=== PATIENT | female | born 1945 ===

== ENCOUNTER 2020-05-27 04:55 | Inpatient (IN) | payer MEDICARE ==
--- NOTE | 2020-05-27 10:41 | PDOC.FPRHP ---
- History of Present Illness Chief Complaint: Dark stool History of Present Illness: Patient is a 74 year old with hx of ESRD on TTHS, afib, DM2, HTN, and possible CHF who presented with dark stool x 4 days. On eliquis for afib. Patient is poor historian. Per daughter, patient has had decreased PO intake and decreased m obility. No hx GI bleed in past. No SOB or wheezing. Patient tested COVID+ on 05/04. + COVID in ED on 05/26. Most recent fall was 02/23. Daughter reports patient has been chronically weak since and ambulates with walker. Baseline mentation is awake, alert, requires assistance with all ADLs other than feeding self. ED Course: In [place] ED: +FOBT. H/H was 5.9/18.4. Received 2 units of blood, repeat H/H was 7.6/23. Plt 128. Initial INR 1.8. BUN elevated at 49. Creatinine 3.7. Albumin low at 2.4. CT Abdomen/Pelvis showed bilateral mild pleural effusion, moderate cardiomegaly, mild pericardial effusion, few old healed fractures on left ribs, insuffiency fracture through bilateral inferior and superior pubic rami, insufficiency fractures with right sacral ala, few left renal stones without hydronephrosis, atrophic kidneys. Received Rocephin 1g, 1L NS, Zofran 4mg. - Allergies/Adverse Reactions Allergies Allergy/AdvReac Type Severity Reaction Status Date / Time No Known Allergies Allergy Verified 05/27/20 11:12 - History PMHx: ESRD on TTHS, afib, DM2, HTN, CHF? PSHx: L arm fistula, ankle surgery with pins FHx: DM Social: Denies ETOH, drug and tobacco use. Lives with and brother. 11 children, alternate taking care of her. - Review of Systems ROS unobtainable: due to mental status - Vital signs BP: [111/70] HR: [92] RR: 18 Tmax: [98] Pox: [95]% on [RA] Wt: [44.4kg] - Physical Exam Constitutional: NAD -Constitutional: sleepy but easily arousable, able to say name but could not get more information out of her HEENT: normocephalic and atraumatic, PERRLA, EOMI, conjunctiva clear, no scleral icterus Neck: trachea midline Heart: pulses present Lungs: no respiratory distress, good air movement Abdomen: soft, non-tender, no masses/distention Musculoskeletal: ROM grossly normal -Musculoskeletal: decreased muscle mass of extremities ROM x4 healed ulcers of Neurological: no focal deficit Skin: no rash/lesions, no jaundice Psychiatric: other (unable to obtain) FMR H&P: Results - Labs Result Diagrams: 05/27/20 12:40 05/27/20 12:40 FMR H&P: A/P - Plan 74 year old female with history of ESRD on T//, afib on eliquis, DM2 who presented with dark stool x 4 days Symptomatic anemia 2/2 likely GI bleed Daughter reports worsening weakness and dark stool x 4 days. +FOBT in [place] ED. Initial H/H was 5.9/18.4, INR was 1.8. Unknown last EGD/colonoscopy due to poor historian -Hgb improved from 5.9 > 7.6 s/p 2 units pRBC. Repeat H/H now -Consult GI for evaluation -NPO pending GI consult -Protonix 40mg IV BID -Hold home eliquis. SCDs for dvt ppx ESRD on T/ dialysis Initial lab work showed creatinine 3.7, BUN 49 -Consult nephrology -Renal diet -Renally dose medications as indicated Hx of CHF Daughter denies hx of CHF in past but noted on records. CT A/P showed bilateral mild pleural effusion and moderate cardiomegaly. -Contact PCP in [place] to confirm diagnosis -Strict I&Os -Complete med rec with pharmacy Afib -Hold home eliquis -Complete med rec with pharmacy to initiate home meds DM2 Daughter reports diet control -Mild SSI -Accuchecks ACHS -Hypoglycemic protocol in place HTN BP controlled upon admission -Monitor -Complete med rec with pharmacy to initiate home meds Hx of falls Few old healed fractures on left ribs, insuffiency fracture through bilateral inferior and superior pubic rami, insufficiency fractures with right sacral ala noted on imaging. Likely chronic due to recurrent falls -PT/OT eval PCP: Dr. Ellis in [place] Code: FULL per daughter, will confirm with DVT ppx: SCDs Social: Palliative consult for goals of care Dispo: Admit to medicine inpatient, expected LOS > 48 hours FMR H&P: Upper Level - Plan Date/Time: 05/27/20 1041 I, [Edwina So], have evaluated this patient and agree with findings/plan as outlined by consulting intern resident. Pertinent changes/additions are listed here. 74 yo F with Afib, DM2, CHF?, HTN and ESRD on TTS HD transferred from [facility] for GI bleed. Currently patient is difficult to elicit history from since she is drowsy and just received Ativan this morning. Daughter reports she has a hx of Afib on eliquis and starting Sunday had been having dark tarry stools. No prior hx of GI bleed. She reports shes had decreased energy and PO intake as well. Sunday they brought her to the hospital where she was found to have a Hgb of 5.2, INR 1.8, FOBT+ and was given 2 PRBCs with plans to transfe r. Patients last reported bloody BM was yesterday evening. Her repeat Hgb was 7.7 on 05/27 at midnight. She will be admitted for suspected GI bleed with monitoring. Will start IV protonix, make NPO and consult GI. Hold eliquis. In addition, we will consult nephron since patient will require routine HD while she is here. GI ppx: IV protonix BID dvt ppx: hold Code: full Addendum - Attending - Attending Attestation Date/Time: 05/27/20 2938 I personally evaluated the patient and discussed the management with Dr. So. I agree with the History, Examination, Assessment and Plan documented above with any addition or exceptions noted below.
[2020-05-27] MEDS ORDERED: Ondansetron PF 4 MG/2 ML Vial IVP PRN (10:42)
[2020-05-27] MEDS ORDERED: Ondansetron ODT 4 MG TAB PO PRN (10:42)
[2020-05-27 11:00] VITALS: BMI 17.9
[2020-05-27] MEDS ORDERED: Dextrose 50% Abboject 50 ML SYRINGE SLOW IVP PRN (12:03)
[2020-05-27] MEDS ORDERED: HumaLOG 300 UNITS/3 ML VIAL SC PRN (12:03)
[2020-05-27] MEDS ORDERED: Dextrose 5% in Water 1,000 ML IV PRN (12:03)
[2020-05-27 13:03] LABS: INR-International Normal Ratio 1.5; Prothrombin Time 18.6 sec (12.0-14.7)
[2020-05-27 13:04] LABS: PTT 36.7 sec (22.9-36.1)
[2020-05-27 13:15] LABS: Anion Gap 23 mmol/L (10-20); BUN (Urea Nitrogen) 53 mg/dL (9.8-20.1); Calc. Creatinine Clearance 8 mL/min (70-130); Calcium 7.6 mg/dL (7.8-10.44); Carbon Dioxide 18 mmol/L (23-31); Chloride 101 mmol/L (98-107); Glucose 83 mg/dL (83-110); Potassium 4.3 mmol/L (3.5-5.1); Sodium 138 mmol/L (136-145)
[2020-05-27 13:27] LABS: #Lymphocytes 0.8 thou/uL (1.20-3.40); #Monocytes 0.5 thou/uL (0.11-0.59); #Neutrophils 3.2 thou/uL (1.40-6.50); %Basophils 0.5 % (0.0-1.0); %Eosinophils 0.7 % (0.0-10.0); %Lymphocytes 17.6 % (21.0-51.0); %Monocytes 11.6 % (0.0-10.0); %Neutrophils 69.6 % (42.0-75.0); MDiff Complete? YES; Mean Corpuscular HGB CONC 31.7 g/dL (32.0-36.0); Mean Corpuscular Hemoglobin 30.1 pg (27.0-31.0); Mean Platelet Volume 9.3 fL (7.4-10.4); Platelet Count 103 thou/uL (130-400); RBC Distribution Width 16.2 % (11.5-14.5); Red Blood Cell (RBC) Count 3.33 mill/uL (4.20-5.40); White Blood Cell (WBC) Count 4.6 thou/uL (4.8-10.8)
[2020-05-27 13:28] LABS: Anisocytosis SLIGHT = 6-15 cells (100X) (0-5/hpf); Platelet Morphology Comment Appears Decreased; Polychromasia SLIGHT = 2-3 cells (100X) (0-2/hpf); Target Cells SLIGHT = 2-5 cells (100X) (0-1/hpf)
[2020-05-27 17:15] LABS: HBSAg Index 0.26 S/CO (0-0.99); Hep B Surf Ag Non-Reactive S/CO (NonReactive)
[2020-05-27 17:39] LABS: ALT (SGPT) 11 U/L (8-55); AST (SGOT) 20 U/L (5-34); Albumin 2.8 g/dL (3.4-4.8); Alkaline Phosphatase 162 U/L (40-110); Anion Gap 16 mmol/L (10-20); BUN (Urea Nitrogen) 19 mg/dL (9.8-20.1); Bilirubin, Total 0.7 mg/dL (0.2-1.2); Calc. Creatinine Clearance 18 mL/min (70-130); Calcium 7.6 mg/dL (7.8-10.44); Carbon Dioxide 25 mmol/L (23-31); Chloride 101 mmol/L (98-107); Globulin 3.6 g/dL (2.4-3.5); Glucose 79 mg/dL (83-110); Potassium 3.1 mmol/L (3.5-5.1); Protein, Total 6.4 g/dL (6.0-8.3); Sodium 139 mmol/L (136-145)
[2020-05-27] MEDS: Acetaminophen 325 MG TAB PO PRN (18:31)
[2020-05-27] MEDS: Pantoprazole 40 MG VIAL IVP SCH (21:56)
[2020-05-27] MEDS ORDERED: Carvedilol 6.25 MG TAB PO SCH (23:00)
[2020-05-27] MEDS ORDERED: Melatonin 3 MG TAB PO PRN (23:10)
[2020-05-28] MEDS ORDERED: Lactated Ringer's 500 ML IV SCH (00:15)
--- NOTE | 2020-05-28 01:27 | CON ---
DATE OF CONSULTATION: CONSULTING PHYSICIAN: Dr. Cleveland. REASON FOR CONSULTATION: End-stage renal disease evaluation. REASON FOR ADMISSION: GI bleed. HISTORY OF PRESENT ILLNESS: This is a 74-year-old female with history of end-stage renal disease, atrial fibrillation, type 2 diabetes, hypertension, came to the hospital with a GI bleed and is being treated. She gets dialysis on Sunday, , and Sunday and due for dialysis as per the nephrology consult. The patient is not able to give a good history. No fever or chills. No nausea or vomiting. PAST MEDICAL HISTORY: Positive for end-stage renal disease, atrial fibrillation, type 2 diabetes, hypertension, CHF. PAST SURGICAL HISTORY: Left arm fistula, ankle surgery. HOME MEDICATIONS: Reviewed. ALLERGIES: NO KNOWN DRUG ALLERGIES. SOCIAL HISTORY: No smoking, alcohol, or illicit drugs. FAMILY HISTORY: Positive for diabetes. REVIEW OF SYSTEMS: The following complete review of systems was negative, unless otherwise mentioned in the HPI or below: CONSTITUTIONAL: Weight loss or gain, ability to conduct usual activities. SKIN: Rash, itching. EYES: Double vision, pain. ENT/MOUTH: Nose bleeding, neck stiffness, pain, tenderness. CARDIOVASCULAR: Palpitations, dyspnea on exertion, orthopnea. RESPIRATORY: Shortness of breath, wheezing, cough, hemoptysis, fever or night sweats. GASTROINTESTINAL: Poor appetite, abdominal pain, heartburn, nausea, vomiting, constipation, or diarrhea. GENITOURINARY: Urgency, frequency, dysuria, nocturia. MUSCULOSKELETAL: Pain, swelling. NEUROLOGIC/PSYCHIATRIC: Anxiety, depression. ALLERGY/IMMUNOLOGIC: Skin rash, bleeding tendency. PHYSICAL EXAMINATION: GENERAL: This is an elderly female, in no apparent distress. VITAL SIGNS: Temperature 98.0, pulse 92, respiratory rate 18, blood pressure 111/70. HEENT: Atraumatic, normocephalic. Oral mucosa moist. NECK: Supple. CV: S1, S2. Rate and rhythm regular. RESPIRATORY: Clear. MUSCULOSKELETAL: 1+ edema. DERMATOLOGIC: Denies skin rash. NEUROLOGIC: Alert and awake. LABORATORY DATA: Hemoglobin is 10.0, potassium 4.3, BUN is 53, and creatinine is 4.4. ASSESSMENT AND PLAN: 1. End-stage renal disease. Continue on hemodialysis as tolerated. 2. Edema. 3. Hypertension. 4. Anemia of chronic disease with gastrointestinal bleed. PLAN: To continue dialysis as tolerated. We will follow. Thank you for the consult. Job ID: [id number]
--- NOTE | 2020-05-28 01:41 | PDOC.BPN ---
- Brief Progress Note Encounter Date: 05/28/20 Encounter Time: 00:30 Received page from nurse saying patient was hypotensive, tachycardic, and more difficult to arouse than normal. Went to evaluate patient and BP was 70-80s/40-50s in the room and HR was 110s-120s. Patient was in reverse Trendelenberg and her only complaint was that her head was "hanging" she denied any pain besides her head. She was responsive to questioning. Patient was given a 500cc NS bolus and BPs were trending up to 90s/60s. HR was downtrending to 90s-100s. Given improvement with bolus, decision was made to transfer patient to telemetry for closer cardiac monitoring. H&H was ordered stat given hx of GI bleed.
[2020-05-28 01:44] LABS: Hemoglobin 8.9 g/dL (12.0-16.0); Platelet Count 91 thou/uL (130-400)
[2020-05-28] MEDS ORDERED: Sodium Chloride 0.9% 250 ML IV SCH (02:30)
--- NOTE | 2020-05-28 04:43 | PDOC.BPN ---
- Brief Progress Note MAP still in low 50's despite fluid boluses. Ordered lactic acid, trop, EKG. Will start peripheral levophed and transfer to ICU (PACU).
[2020-05-28] MEDS ORDERED: Norepinephrine 8 MG/0.9% NS 250 ML IVPB SCH (04:45)
[2020-05-28 04:53] LABS: #Lymphocytes 0.8 thou/uL (1.20-3.40); #Monocytes 0.6 thou/uL (0.11-0.59); #Neutrophils 3.6 thou/uL (1.40-6.50); %Basophils 0.8 % (0.0-1.0); %Eosinophils 0.5 % (0.0-10.0); %Lymphocytes 16.5 % (21.0-51.0); %Neutrophils 70.2 % (42.0-75.0); Hemoglobin 9.1 g/dL (12.0-16.0); Mean Corpuscular HGB CONC 31.9 g/dL (32.0-36.0); Mean Corpuscular Hemoglobin 29.8 pg (27.0-31.0); Mean Corpuscular Volume 93.5 fL (78.0-98.0); Mean Platelet Volume 9.8 fL (7.4-10.4); Platelet Count 85 thou/uL (130-400); RBC Distribution Width 16.1 % (11.5-14.5); Red Blood Cell (RBC) Count 3.06 mill/uL (4.20-5.40); White Blood Cell (WBC) Count 5.1 thou/uL (4.8-10.8)
[2020-05-28 05:03] LABS: Anion Gap 17 mmol/L (10-20); BUN (Urea Nitrogen) 18 mg/dL (9.8-20.1); Calc. Creatinine Clearance 14 mL/min (70-130); Calcium 7.4 mg/dL (7.8-10.44); Carbon Dioxide 22 mmol/L (23-31); Chloride 102 mmol/L (98-107); Glucose 80 mg/dL (83-110); Potassium 3.4 mmol/L (3.5-5.1); Sodium 138 mmol/L (136-145)
[2020-05-28 06:49] LABS: Lactic Acid 1.3 mmol/L (0.5-2.2)
--- NOTE | 2020-05-28 06:56 | CON ---
DATE OF CONSULTATION: CHIEF COMPLAINT: Blood in stool. HISTORY OF PRESENT ILLNESS: Millie Rand is a 74-year-old woman with end- stage renal disease on hemodialysis who presented with black stools over the last few days. She is on Eliquis. She has no nausea or vomiting, but decreased appetite. No chest pain or shortness of breath. She was found to be positive for COVID 05/04/20, so has now been taken off isolation. She was found to have anemia and received RBC transfusion. She had CT scan of the abdomen and pelvis which reportedly showed pleural effusion. PAST MEDICAL HISTORY: End-stage renal disease, dialysis AV fistula, ankle surgery. FAMILY HISTORY: negative for GI malignancy. ALLERGIES: NKDA. MEDICATIONS: 1. Eliquis. 2. Carvedilol. 3. Megace. Current inpatient medications include: carvedilol, clonidine, megace. Eliquis has been held. REVIEW OF SYSTEMS: Negative time 10 systems reviewed except as stated in History of Present Illness. PHYSICAL EXAMINATION: VITAL SIGNS: temperature 98.9, pulse 113, BP 108/68. GENERAL: She is confused, awake and responsive. HEART: Regular rate and rhythm. ABDOMEN: soft, non-tender, non-distended. Bowel sounds present. RECTAL: Melenic stool. EXTREMITIES: no edema LABORATORY DATA: WBC 4.6, HB 10.0, plt 103. IMPRESSION: 1. Gastrointestinal bleed presenting with melena and anemia, which was more severe than baseline, now status post 2 units transfusion. 2. Atrial fibrillation. She has been on Eliquis. She is on reduced dosing of eliquis at 2.5 given her end-stage renal disease. 3. ESRD. RECOMMENDATIONS: 1. EGD and Colonoscopy. 2. proton pump inhibitor. Job ID: [id number] [facility]
[2020-05-28 06:58] LABS: Troponin I 0.063 ng/mL (< 0.028)
--- NOTE | 2020-05-28 08:55 | PDOC.FM ---
- Subjective Subjective: Overnight had episodes of Afib RVR with hypotension, s/p IVF and medications, see documentation. This AM denies any Cp, SOB, n/v, palpitations, dizziness/lightheadedness. States she is hungry. No Concerns for this AM. - Objective MAR Reviewed: Yes Vital Signs & Weight: Vital Signs (12 hours) Temp Pulse Resp BP BP Pulse Ox 05/28/20 07:52 99.0 F 05/28/20 07:00 98.8 F 05/28/20 06:36 97.5 F L 05/28/20 06:18 100 05/28/20 05:18 100 05/28/20 01:45 95 05/28/20 00:00 113 H 20 77/49 L 98 05/27/20 22:55 108/68 Weight Weight 44.452 kg Most Recent Monitor Data Heart Rate from ECG 109 NIBP 122/73 NIBP BP-Mean 89 Respiration from ECG 16 SpO2 97 Result Diagrams: 05/28/20 03:47 05/28/20 03:47 EKG Reviewed by me: Yes (Tele: Afib rate controlled) Phys Exam - Physical Examination Constitutional: NAD (frail-appearing, chronically ill-appearing, talkative and arousable) HEENT: moist MMs Neck: supple Respiratory: no wheezing, no rales, no rhonchi, clear to auscultation bilateral Cardiovascular: no significant murmur, irregular Gastrointestinal: soft, no distention, positive bowel sounds Musculoskeletal: no edema Dx/Plan (1) GI bleed Code(s): K92.2 - GASTROINTESTINAL HEMORRHAGE, UNSPECIFIED Status: Acute (2) ESRD (end stage renal disease) on dialysis Code(s): N18.6 - END STAGE RENAL DISEASE; Z99.2 - DEPENDENCE ON RENAL DIALYSIS Status: Acute (3) Atrial fibrillation with RVR Code(s): I48.91 - UNSPECIFIED ATRIAL FIBRILLATION Status: Acute - Plan Plan: 74yo female with history of ESRD on T// HD, afib on eliquis, DM2 who presented with dark stools x 4 days #Symptomatic anemia 2/2 GI bleed in setting on chronic anticoagulation - Daughter reports worsening weakness and dark stool x 4 days. +FOBT in [place] ED. Initial H/H was 5.9/18.4, INR was 1.8. - Hgb improved from 5.9 > 7.6 s/p 2 units pRBC at outside ED. Hb this AM 9.1 - GI consulted, Dr. Yap, plan for EGD/colo today, holding Eliquis, apprec recs - NPO pending endoscopy - Protonix 40mg IV BID - Hold home eliquis. SCDs for dvt ppx - No further bleeding episodes since admission #Afib with runs of RVR - h/o pAfib previously on Coreg and Eliquis at home - Holding Eliquis 2/2 GI bleed - Rate-controlled this AM - Overnight episodes of RVR with hypotension - started on levophed @ 2mcg - will wean off this AM - RVR likely 2/2 missed home meds as well as acute illness - Consider change to Toprol for rate control as less BP affect than Coreg #ESRD on T//S dialysis - Nephrology consulted, apprec assistance - Renal diet - Renally dose medications as indicated #Possible Hx of CHF - Daughter denies hx of CHF in past but noted on records. CT A/P showed bilateral mild pleural effusion and moderate cardiomegaly. - Strict I&Os - Consider Echo #DM2 -Daughter reports diet control -Mild SSI -Accuchecks ACHS -Hypoglycemic protocol in place #HTN - Episodes of hypotension overnight, on levophed, will wean - Hold all Bp meds #Hx of falls - Few old healed fractures on left ribs, insuffiency fracture through bilateral inferior and superior pubic rami, insufficiency fractures with right sacral ala noted on imaging. Likely chronic due to recurrent falls -PT/OT eval - CM to assist with home health/placement if family desires PCP: Dr. Ellis in [place] Code: FULL per daughter, will confirm with DVT ppx: SCDs Social: Palliative consult for goals of care IVF: SL Diet: NPO for endoscopy Dispo: In IMCU for episode of Afib RVR in setting of acute GI bleeding. GI consulted, apprec recs, plan for endoscopy. Rate controlled Afib and normotensive this AM. Wean levo, adjust chronic meds. Anticipate LOS >48hrs. Addendum - Attending - Attending Attestation Date/Time: 05/28/20 5010 I personally evaluated the patient and discussed the management with Dr. Elizabeth I agree with the History, Examination, Assessment and Plan documented above with any addition or exceptions noted below- Patient just returned from EGD. Sleepy from sedation. Afebrile VSS A/P: 1) Anemia from UGIB - EGD with ulcer but no active/recent bleeding. Continue PPI. Await biopsy. Appreciate GI recommenda tions. Monitor H/H 2) Hypotension- continue to wean levophed as tolerated. 3) ESRD- continue HD as per nephrology. 4) DM- continue to moniotr BG.
[2020-05-28] MEDS ORDERED: Apixaban 2.5 MG TAB PO SCH (09:00)
[2020-05-28] MEDS ORDERED: Carvedilol 6.25 MG TAB PO SCH (09:00)
[2020-05-28] MEDS ORDERED: cloNIDine 0.3 MG TAB PO SCH (09:00)
[2020-05-28] MEDS: Pantoprazole 40 MG VIAL IVP SCH ×2 (09:18→20:33)
[2020-05-28] MEDS ORDERED: PROPOFOL 200 MG/20 ML VIAL ONE (09:49)
--- NOTE | 2020-05-28 10:13 | OP ---
DATE OF PROCEDURE: 05/28/2020 PROCEDURE PERFORMED: Esophagogastroduodenoscopy with biopsy. PREOPERATIVE DIAGNOSES: Gastrointestinal bleed and anemia of acute blood loss. DESCRIPTION OF PROCEDURE: Informed consent was obtained from the patient and family. The bite block was placed and the endoscope was advanced easily to the second portion of the duodenum and retroflexion was performed in the stomach. The esophagus was normal. The GE junction was normal. The stomach had diffuse erythematous gastritis. Biopsies were obtained in the antrum to rule out H pylori. There was a shallow, irregular 1 cm ulcer in the first portion of the duodenum with surrounding inflamed erythematous mucosa. There was no visible vessel or stigmata of recent bleeding. Biopsies were obtained from the surrounding irregular mucosa. The second portion of the duodenum was normal. Retroflexed views in the stomach were unremarkable except for again erythematous gastritis in the fundus. IMPRESSION: 1. Shallow, irregular duodenal ulcer in the first portion of the duodenum with duodenitis. Biopsies were obtained. There was no stigmata of recent bleeding. 2. Erythematous gastritis, which was diffuse. Biopsies obtained to rule out Helicobacter pylori. 3. Otherwise normal esophagogastroduodenoscopy without stigmata of recent bleeding. The shallow duodenal ulcer likely bled when she was fully anticoagulated with the Eliquis. RECOMMENDATIONS: 1. Await histopathology. 2. Proton pump inhibitor twice daily. Job ID: [id number]
[2020-05-28 10:15] LABS: CKMB 1.4 ng/mL (0-6.6)
[2020-05-28] MEDS: Megestrol Acetate 40 MG TAB PO SCH (10:30)
--- NOTE | 2020-05-28 11:30 | PRG ---
DATE OF SERVICE: 05/28/2020 SUBJECTIVE: Patient was seen and examined at bedside and overnight events noted. Patient denies any shortness of breath or chest pain or palpitation. No history of nausea or vomiting or diarrhea or fever or chills or cramps. OBJECTIVE: GENERAL: This is a well-built female, in no apparent distress. VITAL SIGNS: Temperature 97.7. Heart rate 97. Respiratory rate 24. Blood pressure 103/69. HEENT: Atraumatic, normocephalic. Oral mucosa is moist. NECK: Supple. CARDIOVASCULAR: S1, S2 heard. Rate and rhythm regular. RESPIRATORY: Clear to auscultation. GASTROINTESTINAL: Abdomen is soft. MUSCULOSKELETAL: No tenderness. No edema. DERMATOLOGIC: No skin rash. NEUROLOGIC: Alert and awake and oriented x3. No focal neurologic deficits. Moving all the extremities. PSYCHIATRIC: Mood and affect normal. LABORATORY DATA: Potassium is 3.4, BUN is 18, and creatinine is 2.39. ASSESSMENT AND PLAN: 1. End-stage renal disease. Continue dialysis TTS as tolerated. 2. Edema. 3. History of hypertension. 4. Anemia of chronic disease. 5. Mild hypokalemia. We will continue dialysis. TTS as tolerated. Job ID: [id number]
--- NOTE | 2020-05-28 12:40 | EKG ---
Test Reason : STAT Blood Pressure : / mmHG Vent. Rate : 117 BPM Atrial Rate : 357 BPM P-R Int : 000 ms QRS Dur : 078 ms QT Int : 344 ms P-R-T Axes : 000 144 -31 degrees QTc Int : 479 ms Atrial fibrillation with rapid ventricular response RSR' or QR pattern in V1 suggests right ventricular conduction delay Possible Inferior infarct , age undetermined Possible Anterolateral infarct , age undetermined Abnormal ECG Confirmed by AUGUSTINE CLANCY ([id number]) on 05/28/2020 12:40:01 PM Referred By: Confirmed By:AUGUSTINE CLANCY
--- NOTE | 2020-05-28 12:41 | EKG ---
Test Reason : Blood Pressure : / mmHG Vent. Rate : 100 BPM Atrial Rate : 075 BPM P-R Int : 000 ms QRS Dur : 096 ms QT Int : 354 ms P-R-T Axes : 000 -49 -68 degrees QTc Int : 456 ms Atrial fibrillation Left axis deviation Low voltage QRS Incomplete right bundle branch block Cannot rule out Inferior infarct , age undetermined Possible Anterolateral infarct , age undetermined Abnormal ECG No previous ECGs available Confirmed by AUGUSTINE CLANCY ([id number]) on 05/28/2020 12:41:25 PM Referred By: Elis VALENTINE Confirmed By:AUGUSTINE CLANCY
[2020-05-28] MEDS ORDERED: Acetaminophen 325 MG TAB ONE (12:57)
[2020-05-28] MEDS: Acetaminophen 325 MG TAB PO PRN ×2 (13:01→17:44)
[2020-05-29] MEDS ORDERED: Melatonin 3 MG TAB PO SCH (02:15)
[2020-05-29 05:05] LABS: Anion Gap 15 mmol/L (10-20); BUN (Urea Nitrogen) 22 mg/dL (9.8-20.1); Calc. Creatinine Clearance 10 mL/min (70-130); Calcium 7.4 mg/dL (7.8-10.44); Carbon Dioxide 26 mmol/L (23-31); Chloride 101 mmol/L (98-107); Glucose 137 mg/dL (83-110); Potassium 3.4 mmol/L (3.5-5.1); Sodium 139 mmol/L (136-145)
[2020-05-29 05:48] LABS: Eosinophils 3 % (0-10); Hemoglobin 9.5 g/dL (12.0-16.0); Lymphocytes 23 % (21-51); MDiff Complete? YES; Mean Corpuscular HGB CONC 31.9 g/dL (32.0-36.0); Mean Platelet Volume 9.1 fL (7.4-10.4); Monocytes 10 % (0-10); Neutrophil 64 % (42-75); Platelet Count 105 thou/uL (130-400); Platelet Morphology Comment Appears Decreased; RBC Distribution Width 16.5 % (11.5-14.5); RBC Morphology Normal; Red Blood Cell (RBC) Count 3.15 mill/uL (4.20-5.40); White Blood Cell (WBC) Count 4.6 thou/uL (4.8-10.8)
--- NOTE | 2020-05-29 06:18 | PDOC.FM ---
- Subjective Subjective: Pt awake, doing well, tells me she's hungry. No further bloody BMs per nursing. Patient has no other concerns but is not fully oriented due to dementia. - Objective Vital Signs & Weight: Vital Signs (12 hours) Temp Pulse Resp BP BP Pulse Ox 05/29/20 03:15 98.6 F 94 16 95/59 L 90 L 05/28/20 23:44 124/63 05/28/20 20:00 98.2 F 97 18 111/59 L 100 Weight Admit Weight 44.452 kg Weight 46 kg Most Recent Monitor Data Heart Rate from ECG 91 NIBP 105/61 NIBP BP-Mean 75 Respiration from ECG 16 SpO2 100 I&O: 05/27/20 05/28/20 05/29/20 06:59 06:59 06:59 Intake Total 1640.5 Output Total 0 Balance 1640.5 Result Diagrams: 05/29/20 04:11 05/29/20 04:11 Phys Exam - Physical Examination Constitutional: NAD HEENT: PERRLA Respiratory: no wheezing, clear to auscultation bilateral Cardiovascular: no significant murmur irregular Gastrointestinal: soft, non-tender Musculoskeletal: no edema mi Neurological: non-focal, moves all 4 limbs Deviation from normal: a&o x1-2 Skin: cap refill <2 seconds Dx/Plan - Plan Plan: 74yo female with history of ESRD on T// HD, afib on eliquis, DM2 who presented with dark stools x 4 days #Symptomatic anemia 2/2 duodenal ulcer bleed in setting on chronic anticoagulation - Daughter reports worsening weakness and dark stool x 4 days. +FOBT in [place] ED. Initial H/H was 5.9/18.4, INR was 1.8. - Hgb stable at 9.5 s/p 2 PTBC on 05/27/20 at outside facility - EGD showing difuse gastritis & duodenal ulcer as suspected source o bleeding - No further bleeding at this facility - Protonix 40mg IV BID - Hold home eliquis. SCDs for dvt ppx #Afib with intermittent RVR - h/o pAfib previously on Coreg and Eliquis at home - Holding Eliquis 2/2 GI bleed - Per tele 90-110, mainly 90s, patient denies sxs - RVR likely 2/2 missed home meds as well as acute illness - Starting metorpolol today #ESRD on T//S dialysis - Nephrology consulted, apprec assistance - Renal diet - Renally dose medications as indicated #Possible Hx of CHF - Daughter denies hx of CHF in past but noted on records. CT A/P showed bilateral mild pleural effusion and moderate cardiomegaly. - Strict I&Os - Consider Echo #DM2 -Daughter reports diet control -Mild SSI -Accuchecks ACHS -Hypoglycemic protocol in place #HTN - Low normal - Hold all Bp meds #Hx of falls - Few old healed fractures on left ribs, insuffiency fracture through bilateral inferior and superior pubic rami, insufficiency fractures with right sacral ala noted on imaging. Likely chronic due to recurrent falls -PT/OT eval - CM to assist with home health/placement if family desires PCP: Dr. Ellis in [place] Code: FULL per daughter, will confirm with DVT ppx: SCDs Social: Palliative consult for goals of care IVF: SL Diet: NPO for endoscopy Dispo: Pending GI and response to metoprolol, can maybe d/c later today vs. early tomorrow. Need to discuss with familytransport plan. Addendum - Attending - Attending Attestation Date/Time: 05/29/20 1027 I personally evaluated the patient and discussed the management with Dr. So. I agree with the History, Examination, Assessment and Plan documented above with any addition or exceptions noted below. Very hungry. No cp/sob/n/v/f/c. Possible dc today.
[2020-05-29] MEDS: Acetaminophen 325 MG TAB PO PRN (08:52)
[2020-05-29] MEDS: Megestrol Acetate 40 MG TAB PO SCH (08:52)
[2020-05-29] MEDS: Pantoprazole 40 MG VIAL IVP SCH (08:53)
[2020-05-29 14:50] VITALS: TEMP 98.7
--- NOTE | 2020-05-29 15:12 | PRG ---
DATE OF SERVICE: 05/29/2020 SUBJECTIVE: Ms. Pinto has had no further overt bleeding. No abdominal pain. OBJECTIVE: VITAL SIGNS: Temperature is 97.5, pulse 77, blood pressure 84/52 to 120/62. GENERAL: She is in no acute distress. Awake and alert. Her daughter is on the phone and helps interpret today. LUNGS: Clear to auscultation bilaterally. HEART: Regular rate and rhythm. ABDOMEN: Soft, nontender, and nondistended. Bowel sounds are present. EXTREMITIES: No lower extremity edema. LABORATORY DATA: White blood cell count 4.6, hemoglobin 9.5, platelets 105, creatinine 3.52. IMPRESSION: 1. Gastrointestinal bleed. 2. Anemia of acute blood loss. 3. Duodenal ulcer, which appears to have been the bleeding source. There were no signs of recent bleeding at the time of the EGD yesterday. Biopsies were taken from the stomach to rule out Helicobacter pylori and also from the irregular mucosa around the duodenal ulcer. Bleeding has now resolved. RECOMMENDATIONS: 1. Await histopathology. 2. Proton pump inhibitor twice daily over the next couple of weeks and then she can back off to once daily. 3. From a GI perspective, she could likely restart her Eliquis around 3 days. Will be determined by the primary service if this is indicated based on her other medical problems and risks. 4. I will sign off for now. Please call if GI can be of assistance. Job ID: [id number]
[2020-05-29 15:41] VITALS: BP 102/62
--- NOTE | 2020-05-29 19:21 | PRG ---
DATE OF SERVICE: 05/29/2020 SUBJECTIVE: Patient was seen and examined at bedside and overnight events noted. Patient denies any shortness of breath or chest pain or palpitation. No history of nausea or vomiting or diarrhea or fever or chills or cramps. OBJECTIVE: General: This is a well-built female, in no apparent distress. Vital Signs: Temperature 98.7. Heart rate 90. Respiratory rate 18. Blood pressure 102/62. HEENT: Atraumatic, normocephalic. Oral mucosa is moist. Neck: Supple. Cardiovascular: S1, S2 heard. Rate and rhythm regular. Respiratory: Clear to auscultation. Gastrointestinal: Abdomen is soft. Musculoskeletal: No tenderness. No edema. Dermatologic: No skin rash. Neurologic: Alert and awake and oriented x3. No focal neurologic deficits. Moving all the extremities. Psychiatric: Mood and affect normal. LABORATORY DATA: Potassium 3.4, BUN is 52, and creatinine is 3.5. ASSESSMENT AND PLAN: 1. End-stage renal disease. Continue dialysis TTS as tolerated. 2. Edema. 3. History of hypertension. 4. Anemia of chronic disease. 5. Labs are stable. Continue dialysis as tolerated. Job ID: [id number]
--- NOTE | 2020-06-01 03:40 | PQF ---
CLINICAL DOCUMENTATION CLARIFICATION FORM: Dear : Enrique James Date / Time: 06/01/20 4218 Please exercise your independent, professional judgment in responding to the clarification form. Clinical indicators are provided on the bottom of this form for your review COVID 19 Clarification and Manifestations: Please check appropriate box(es): A. COVID 19 virus diagnosis Validation: [ ] COVID-19 is ruled in (if so, please provide the evidence used to support this diagnosis) [ ] COVID-19 has been ruled out [ x ] COVID-19 as history Only [ ] Other explanation of clinical findings [ ] Test Results Pending [ ] Unable to determine Physician Signature: Date/Time: For continuity of documentation, please document condition throughout progress notes and discharge summary. Thank You To be completed by CDI/Coding staff for physician review: Present Clinical Indicators - Signs / Symptoms / Labs Results and Location in Medical Record [x] BP 112/74, Pulse 134, Resp 20, Temp 98.9 Vital signs 05/27 [x] WBC 4.6, Plt count 103, Neutrophils 69.6 Laboratory 05/27 [x] Pt was hypotensive, tachycardic and more difficult to arouse than normal PN p1 05/28 Dr Blue [x] Pt tested Covid + on 05/04 H&P p1 05/27 Dr Cleveland [x] +Covid in ED on 05/27 H&P p1 05/27 Dr Cleveland [x] She was found to be positive for Covid 05/04/20, so has now been taken off isolation Consult Dr Yap 05/29 Present Risk Factors Results and Location in Medical Record [x] 74 year-old Female H&P p1 05/27 Dr Cleveland [x] HTN H&P p1 05/27 Dr Cleveland [x] CHF H&P p1 05/27 Dr Cleveland [x] ESRD H&P p1 05/27 Dr Cleveland [x] DM H&P p3 05/27 Dr Cleveland Present Treatments Results and Location in Medical Record [x] IVF NS 250 bolus JUL 05 [x] Lactated Ringers 1L JUL 05 CDS/[employer] Signature: Amanda Bee Phone #: [phone] Date/Time: 06/01/20 0339 This is a permanent part of the Medical Record [facility]
--- NOTE | 2020-06-01 03:42 | PQF ---
CLINICAL DOCUMENTATION CLARIFICATION FORM: Dear : Enrique James Date / Time: 06/01/20 4918 Please exercise your independent, professional judgment in responding to the clarification form. Clinical indicators are provided on the bottom of this form for your review Please check appropriate box(s): [ ] Hypovolemic Shock [ ] Hemorrhagic Shock [ x ] Shock Unspecified [ ] Other diagnosis, please specify [ ] Unable to determine In addition, please specify: Present on Admission (POA): [ ] Yes [ x ] No [ ] Unable to determine Physician Signature: Date/Time: For continuity of documentation, please document condition throughout progress notes and discharge summary. Thank You. To be completed by CDI/Coding staff for physician review: Present Clinical Indicators - Signs / Symptoms / Labs Results and Location in Medical Record [x] BP 112/74, Pulse 134, Resp 20, Temp 98.9 Vital signs 05/27 [x] BP 77/49, Pulse 113, Resp 20 Vital signs 05/28 [x] Presented with dark stool H&P p1 05/27 Dr Cleveland [x] symptomatic anemia 2/2 likely GI bleed H&P p1 05/27 Dr Cleveland [x] Pt was hypotensive, tachycardic and more difficult to arouse than normal PN p1 05/28 Dr Blue [x] Symtomatic anemia 2/2 duodenal bleed in setting on chronic anticoagulant HPN p2 05/29 DR James [x] RBC=3.15 Hgb=3.15 Hct=29.7 Laboratory 05/29 Present Risk Factors Results and Location in Medical Record [x] 74 year-old Female H&P p1 05/27 Dr Cleveland [x] HTN H&P p1 05/27 Dr Cleveland [x] CHF H&P p1 05/27 Dr Cleveland [x] ESRD H&P p1 05/27 Dr Cleveland [x] DM H&P p3 05/27 Dr Cleveland Present Treatments Results and Location in Medical Record [x] IVF NS 250 bolus JUL 05 [x] Lactated Ringers 1L JUL 05 [x] IV Levophed 250 ml JUL 05 [x] Trendelenberg position PN 05/28 Dr Blue [x] Admitted to telemetry PN 05/28 Dr Blue [x] Cardiac monitoring PN 05/28 Dr Blue CDS/Alley Worker Signature: Amanda Bee Phone #: [phone] Date/Time: 06/01/20 0341 This is a permanent part of the Medical Record [facility]
--- NOTE | 2020-06-01 07:09 | DIS ---
DATE OF ADMISSION: 05/27/2020 DATE OF DISCHARGE: 05/29/2020 ADMITTING ATTENDING: Edwina So MD DISCHARGE ATTENDING: Edwina So MD RESIDENT: Edwina So, PGY-3. CONSULTS: 1. Gastroenterology, Mani Yap MD. 2. Nephrology, Dr. Moe. PRIMARY DIAGNOSES: 1. Symptomatic anemia secondary to duodenal ulcer bleed in the setting of chronic anticoagulation. 2. Atrial fibrillation with intermittent rapid ventricular response. 3. Possible history of congestive heart failure? SECONDARY DIAGNOSES: 1. Diabetes mellitus, 2. 2. Hypertension. 3. History of falls. 4. End-stage renal disease, on Sunday, , Sunday dialysis. 5. Chronic atrial fibrillation. 6. Dementia? PROCEDURES AND IMAGIN. EGD with biopsy: Erythematous gastritis, diffuse. Shallow duodenal ulcer which likely bled on anticoagulation but currently hemostatic. Shallow, irregular duodenal ulcer in the first portion of duodenum with duodenitis. Biopsies negative for H. pylori. 2. PRBCs x2. DISCHARGE MEDICATIONS: None. New medications: 1. Melatonin 3 mg p.o. at bedtime. 2. Metoprolol-XL 25 mg p.o. daily. 3. Protonix 40 mg p.o. b.i.d. Resume home medications: 1. Clonidine 0.3 mg p.o. t.i.d. 2. Megace 20 mg p.o. daily. 3. Eliquis to not start for three more days, 2.5 mg p.o. daily. Hold for three days. Discontinued medications: Coreg 6.25 mg p.o. b.i.d. HISTORY OF PRESENT ILLNESS/HOSPITAL COURSE: Ms. Amanda Rand is a 74-year-old female with atrial fibrillation and ESRD, on Eliquis, who presented as a transfer from [place] for GI bleed. Per family, she has been having dark-tarry stools. Her hemoglobin in [place] was found to be around five and she was given two PRBCs and transferred to our facility for higher level of care. She underwent an EGD in which the suspected source of bleeding was at the duodenum which was currently not bleeding at that time. She had no more further episodes of bleeding and is being sent home on PPI 40 mg p.o. b.i.d. for the next two weeks with tapering down to daily. GI had recommended that her Eliquis be held for the next three days, but given the fact that she has to decreased fall risk and she is really not ambulatory, it would be reasonable to consider it to prevent risk of . In addition, her course was complicated by atrial fibrillation with RVR. She did miss a dose of her Coreg, in which she went into RVR requiring Levophed for pressor support. She quickly came off the Levophed and her Coreg was changed to metoprolol because her blood pressures could not tolerate Coreg. That medication will be changed upon discharge. She is rate controlled at the time of discharge. In addition, Nephrology was consulted. She received normal hemodialysis sessions while over here. DISPOSITION: Stable. DISCHARGE INSTRUCTIONS: 1. Location: Home. 2. Diet: Heart healthy, high-protein. 3. Activity: Ad sienna as tolerated. Monitoring for fall risk. FOLLOWUP INSTRUCTIONS: 1. Please follow up with PCP in the next week. 2. Please hold Eliquis for the next three days. 3. Please continue Protonix as instructed. Job ID: [id number]
== END 2020-05-29 19:08 | disposition home or self-care (01) | DRG 377 ==
LOC: T4-A 10:12 → 2NO 05-28 01:36 → PACU-TCU 05-28 06:20 → 2NO 05-28 15:34
PROVIDERS: ADMIT Family Medicine; ATTEND Family Medicine
PROC: 5A1D70Z Performance of Urinary Filtration, Intermittent, Less than 6 Hours Per Day (ICD-10-PCS; 2020-05-27)
PROC: 0DB98ZX Excision of Duodenum, Via Natural or Artificial Opening Endoscopic, Diagnostic (ICD-10-PCS; principal; 2020-05-28)
PROC: 0DB78ZX Excision of Stomach, Pylorus, Via Natural or Artificial Opening Endoscopic, Diagnostic (ICD-10-PCS; 2020-05-28)
PROC: 3E033XZ Introduction of Vasopressor into Peripheral Vein, Percutaneous Approach (ICD-10-PCS; 2020-05-28)
DX: K26.4 Chronic or unspecified duodenal ulcer with hemorrhage (principal); N18.6 End stage renal disease; I13.2 Hypertensive heart and chronic kidney disease with heart failure and with stage 5 chronic kidney disease, or end stage renal disease; D62 Acute posthemorrhagic anemia; M84.48XA Pathological fracture, other site, initial encounter for fracture; R57.9 Shock, unspecified; Z86.16 Personal history of COVID-19; I48.91 Unspecified atrial fibrillation; E11.22 Type 2 diabetes mellitus with diabetic chronic kidney disease; D63.1 Anemia in chronic kidney disease; I50.9 Heart failure, unspecified; E87.6 Hypokalemia; K29.70 Gastritis, unspecified, without bleeding; R29.6 Repeated falls; Z99.2 Dependence on renal dialysis; Z91.81 History of falling; Z79.899 Other long term (current) drug therapy; Z79.01 Long term (current) use of anticoagulants
CPT/HCPCS: 36415; 36416; 80048; 82553; 83605; 84484; 85014; 85018; 85025; 85049; 85610; 85730; 87340; 88305; 88312; 88342; 90935; 93005; 93010; 93306; C9113; G0257; J2704; S0179